=== PATIENT | female | born 1970 | race American Indian/Alaskan Native ===

== ENCOUNTER 2017-04-27 17:36 | Emergency (ER) | payer BC ==
[2017-04-27 17:39] VITALS: BMI 27.8
[2017-04-27 17:42] VITALS: BP 144/90; PULSE 94; RESP 18; TEMP 98.8; O2SAT 97
--- NOTE | 2017-04-27 17:54 | ED PDOC ---
Arrival/HPI - General Chief Complaint: Female Genitourinary Time Seen by Provider: 04/27/17 17:43 Historian: Patient - History of Present Illness Narrative History of Present Illness (Text): 04/27/17 17:52 46yo female with PMHx of DM present with complaint of urinary frequency, dysuria and hematuria since this morning. notes history of similar symptoms with UTI in the past. Denies abdominal pain, back pain, fever, chills, nausea, vomiting, any other complaint. Past Medical History - Provider Review Nursing Documentation Reviewed: Yes - Infectious Disease Hx of Infectious Diseases: None - Tetanus Immunization Tetanus Immunization: Unknown - Past Medical History Past Medical History: No Previous - Endocrine/Metabolic Hx Diabetes Mellitus Type 2: Yes - Psychiatric Hx Substance Use: No - Surgical History Hx Orthopedic Surgery: Yes (R knee surgery) Hx Tubal Ligation: Yes - Anesthesia Hx Anesthesia: Yes Hx Anesthesia Reactions: No - Suicidal Assessment Feels Threatened In Home Enviroment: No Family/Social History - Physician Review Nursing Documentation Reviewed: Yes Family/Social History: Unknown Family HX Smoking Status: Never Smoked Hx Alcohol Use: Yes Hx Substance Use: No Hx Substance Use Treatment: No Allergies/Home Meds Allergies/Adverse Reactions: Allergies No Known Allergies Allergy (Verified 11/11/15 10:37) Home Medications: Home Meds Medication Instructions Recorded Confirmed SITagliptin [Januvia] 1 tab PO DAILY 04/27/17 04/27/17 Review of Systems - Physician Review All systems were reviewed & negative as marked: Yes - Review of Systems Constitutional: Normal Eyes: Normal ENT: Normal Respiratory: Normal Cardiovascular: Normal Gastrointestinal: Normal Genitourinary Female: Dysuria, Frequency, Hematuria Musculoskeletal: Normal Skin: Normal Neurological: Normal Endocrine: Normal Hemo/Lymphatic: Normal Psychiatric: Normal Physical Exam Vital Signs Reviewed: Yes Vital Signs Temp Pulse Resp BP Pulse Ox 04/27/17 17:42 98.8 F 94 H 18 144/90 97 Temperature: Afebrile Blood Pressure: Normal Pulse: Regular Respiratory Rate: Normal Appearance: Positive for: Well-Appearing, Non-Toxic, Comfortable Pain Distress: None Mental Status: Positive for: Alert and Oriented X 3 - Systems Exam Head: Present: Atraumatic, Normocephalic Pupils: Present: PERRL Extroacular Muscles: Present: EOMI Conjunctiva: Present: Normal Mouth: Present: Moist Mucous Membranes Neck: Present: Normal Range of Motion Respiratory/Chest: Present: Clear to Auscultation, Good Air Exchange. No: Respiratory Distress, Accessory Muscle Use Cardiovascular: Present: Regular Rate and Rhythm, Normal S1, S2. No: Murmurs Abdomen: Present: Normal Bowel Sounds. No: Tenderness, Distention, Peritoneal Signs, Guarding, McBurney's Point Tender, Rovsing's Sign Present Back: Present: Normal Inspection. No: CVA Tenderness Upper Extremity: Present: Normal Inspection. No: Cyanosis, Edema Lower Extremity: Present: Normal Inspection. No: Edema Neurological: Present: GCS=15, CN II-XII Intact, Speech Normal Skin: Present: Warm, Dry, Normal Color. No: Rashes Psychiatric: Present: Alert, Oriented x 3, Normal Insight, Normal Concentration Medical Decision Making ED Course and Treatment: 04/27/17 19:15 PT is afebrile, hemodynamically stable and comfortable in ED. She have UTI and was treated with Keflex and pyridium. Advised to drink plenty of fluid. referred to her PMD. Advised TRT ED for any new or worsening symptoms. - Lab Interpretations Lab Results: Lab Results 04/27/17 17:55: Urine Color Yellow, Urine Appearance Cloudy, Urine pH 6.0, Ur Specific [place] >= 1.030, Urine Protein >=300 H, Urine Glucose (UA) Negative, Urine Ketones Trace H, Urine Blood Large H, Urine Nitrate Positive H, Urine Bilirubin Negative, Urine Urobilinogen 1.0 H, Ur Leukocyte Esterase Trace H, Urine RBC Tntc, Urine WBC Tntc, Ur Epithelial Cells 1 - 3, Urine Bacteria Mod - Medication Orders Current Medication Orders: Discontinued Medications Cephalexin Monohydrate (Keflex) 500 mg PO STAT STA PRN Reason: Protocol Stop: 04/27/17 18:54 Phenazopyridine HCl (Pyridium) 200 mg PO STAT STA Stop: 04/27/17 18:54 Disposition/Present on Arrival - Present on Arrival Any Indicators Present on Arrival: No History of DVT/PE: No History of Uncontrolled Diabetes: No Urinary Catheter: No History of Decub. Ulcer: No History Surgical Site Infection Following: None - Disposition Have Diagnosis and Disposition been Completed?: Yes Diagnosis: UTI (urinary tract infection) Disposition: HOME/ ROUTINE Disposition Time: 18:55 Patient Plan: Discharge Patient Problems: Current Active Problems Problem Status Onset UTI (urinary tract infection) Acute Condition: STABLE Discharge Instructions (ExitCare): Urinary Tract Infection in Women (ED) Additional Instructions: Drink plenty of fluid and take cranberry supplement Follow up with your doctor Return to ED for any new or worsening symptoms Prescriptions: Cephalexin [Keflex] 500 mg PO QID #28 capsule Phenazopyridine HCl [Pyridium] 200 mg PO TID #6 tablet Referrals: Emeka Riggs MD [Primary Care Provider] - Follow up with primary
[2017-04-27 18:48] LABS: URINE BILIRUBIN NEGATIVE (NEGATIVE); URINE BLOOD LARGE (NEGATIVE); URINE GLUCOSE (UA) NEGATIVE (NEGATIVE); URINE LEUKOCYTE ESTERASE TRACE Leu/uL (NEGATIVE); URINE NITRATE POSITIVE (NEGATIVE); URINE PROTEIN >=300 mg/dL (<30 mg/dL)
[2017-04-27 18:51] LABS: URINE APPEARANCE CLOUDY (CLEAR); URINE COLOR YELLOW (YELLOW)
[2017-04-27 18:54] LABS: URINE BACTERIA MOD (NEG); URINE RBC TNTC /hpf (0-2); URINE WBC TNTC /hpf (0-6)
== END 2017-04-27 19:15 | disposition home or self-care (01) ==
LOC: ED 17:36
DX: N39.0 Urinary tract infection, site not specified (principal)

== ENCOUNTER 2017-06-03 09:03 | Emergency (ER) | payer BC ==
[2017-06-03 09:03] VITALS: BMI 27.8
[2017-06-03] MEDS ORDERED: Tmp-Smz 800 mg-160 mg DS Tab PO STA (09:55)
--- NOTE | 2017-06-03 09:55 | ED PDOC ---
Arrival/HPI - General Chief Complaint: Abnormal Skin Integrity Time Seen by Provider: 06/03/17 09:21 Historian: Patient - History of Present Illness Narrative History of Present Illness (Text): 06/03/17 09:30 This 46 yo female presents to this ED c/o left buttock abscess x 3 days. Patient stated abscess started a a small pimple. Patient stated abscess is painful. Denies rectal pain, fever, sick contact or recent travel. Time/Duration: Other (3 days) Quality: Aching Context: Home Past Medical History - Provider Review Nursing Documentation Reviewed: Yes - Infectious Disease Hx of Infectious Diseases: None - Tetanus Immunization Tetanus Immunization: Unknown - Reproductive Menopause: No - Past Medical History Past Medical History: No Previous - Endocrine/Metabolic Hx Diabetes Mellitus Type 2: Yes - Psychiatric Hx Substance Use: No - Surgical History Hx Orthopedic Surgery: Yes (R knee surgery) Hx Tubal Ligation: Yes - Anesthesia Hx Anesthesia: Yes Hx Anesthesia Reactions: No - Suicidal Assessment Feels Threatened In Home Enviroment: No Family/Social History - Physician Review Nursing Documentation Reviewed: Yes Family/Social History: No Known Family HX Smoking Status: Never Smoked Hx Alcohol Use: Yes Hx Substance Use: No Hx Substance Use Treatment: No Allergies/Home Meds Allergies/Adverse Reactions: Allergies No Known Allergies Allergy (Verified 11/11/15 10:37) Review of Systems - Review of Systems Constitutional: Normal. absent: Fatigue, Weight Change, Fevers Eyes: Normal ENT: Normal Respiratory: Normal Cardiovascular: Normal Gastrointestinal: Normal Genitourinary Female: Normal Musculoskeletal: Normal Skin: Abscess Neurological: Normal Endocrine: Normal Hemo/Lymphatic: Normal Psychiatric: Normal Physical Exam Vital Signs Temp Pulse Resp BP Pulse Ox 06/03/17 09:20 99 F 82 16 116/77 98 Temperature: Afebrile Blood Pressure: Normal Pulse: Regular Respiratory Rate: Normal Appearance: Positive for: Well-Appearing, Non-Toxic, Comfortable Pain Distress: None Mental Status: Positive for: Alert and Oriented X 3 - Systems Exam Head: Present: Atraumatic, Normocephalic Pupils: Present: PERRL Extroacular Muscles: Present: EOMI Conjunctiva: Present: Normal Mouth: Present: Moist Mucous Membranes Neck: Present: Normal Range of Motion Abdomen: Present: Normal Bowel Sounds. No: Tenderness, Distention, Peritoneal Signs Back: Present: Normal Inspection Upper Extremity: Present: Normal Inspection, Normal ROM. No: Cyanosis, Edema Lower Extremity: Present: Normal Inspection, Normal ROM. No: Edema Neurological: Present: GCS=15, CN II-XII Intact, Speech Normal, Motor Func Grossly Intact, Normal Sensory Function, Normal Cerebellar Funct, Gait Normal, Memory Normal Skin: Present: Warm, Dry, Normal Color, Abscess ((+) 3 cm indurated abscess, left mid buttock. No drainage, with subtle fuctuance). No: Rashes Psychiatric: Present: Alert, Oriented x 3, Normal Insight, Normal Concentration Medical Decision Making ED Course and Treatment: 06/03/17 10:00 Re-evaluation. Patient feels better. Discussed results and plan with patient who expresses understanding. All questions answered and there is agreement with the plan to discharge home with instructions. Patient stable for discharge. Return if symptoms persist or worsen. Patient was recommended to return to emergency in 2 days for packing removal , and wound check Re-evaluation Time: 10:01 Reassessment Condition: Re-examined, Improved - Procedure PROCEDURE NOTE (Text): 06/03/17 09:57 PROCEDURE: INCISION & DRAINAGE Performed by the emergency provider Indication: Abscess Location: left buttock Preparation: The area was prepped and draped in the usual sterile fashion and was cleansed with Betadine. Local infiltration of Lidocaine 1% with Epi was used for anesthesia. Approx. 1 cc Procedure: The most fluctuant portion of the abscess was incised with a #11 scalpel. Approximately 0.5 mL of purulent material was obtained. The abscess was packed. A dressing was applied by the RN. ~ Post-Procedure: On exam the abscess is notably less fluctuant. The patient tolerated the procedure well, and there were no complications Disposition/Present on Arrival - Present on Arrival Any Indicators Present on Arrival: No History of DVT/PE: No History of Uncontrolled Diabetes: No Urinary Catheter: No History of Decub. Ulcer: No History Surgical Site Infection Following: None - Disposition Have Diagnosis and Disposition been Completed?: Yes Diagnosis: Abscess Disposition: HOME/ ROUTINE Disposition Time: 10:02 Patient Plan: Discharge Patient Problems: Current Active Problems Problem Status Onset Abscess Acute Condition: GOOD Discharge Instructions (ExitCare): Abscess (ED), Abscess Incision and Drainage (ED) Additional Instructions: Return to emergency in 2 days for wound check. keep wound clean and dry. Do sponge bath. Return to emergency sooner if wound becomes painful, or gets bigger. Prescriptions: Sulfamethoxazole/Trimethoprim [Bactrim DS 800 mg-160 mg] 1 tab PO BID #15 tab Referrals: Chato Riggs MD [Family Provider] - Follow up with primary Forms: [employer] ([place]), WORK NOTE
[2017-06-03 10:01] VITALS: BP 120/86; PULSE 86; RESP 18; TEMP 98.3; O2SAT 100
== END 2017-06-03 10:29 | disposition home or self-care (01) ==
LOC: ED 09:03
DX: L02.31 Cutaneous abscess of buttock (principal)

== ENCOUNTER 2017-06-05 09:06 | Emergency (ER) | payer BC ==
--- NOTE | 2017-06-05 09:21 | ED PDOC ---
Arrival/HPI - General Time Seen by Provider: 06/05/17 09:17 Historian: Patient - History of Present Illness Narrative History of Present Illness (Text): 06/05/17 09:20 46 y/o female, no significant pmh, nkda, s/p I&D abscess about 2 days ago, here for the packing and dressing change x 2 days. Pt. is on the bactrim ds only, pain has decreased, no fever or chills, told come back to the ER today for wound check, no night sweat, no other medical or psychological complaints. Past Medical History - Provider Review Nursing Documentation Reviewed: Yes - Infectious Disease Hx of Infectious Diseases: None - Tetanus Immunization Tetanus Immunization: Unknown - Past Medical History Past Medical History: No Previous - Endocrine/Metabolic Hx Diabetes Mellitus Type 2: Yes - Psychiatric Hx Substance Use: No - Surgical History Hx Orthopedic Surgery: Yes (R knee surgery) Hx Tubal Ligation: Yes - Anesthesia Hx Anesthesia: Yes Hx Anesthesia Reactions: No - Suicidal Assessment Feels Threatened In Home Enviroment: No Family/Social History - Physician Review Nursing Documentation Reviewed: Yes Family/Social History: Unknown Family HX Smoking Status: Never Smoked Hx Alcohol Use: Yes Hx Substance Use: No Hx Substance Use Treatment: No Allergies/Home Meds Allergies/Adverse Reactions: Allergies No Known Allergies Allergy (Verified 11/11/15 10:37) Review of Systems - Review of Systems Constitutional: absent: Fatigue, Fevers Eyes: absent: Vision Changes ENT: absent: Hearing Changes Respiratory: absent: SOB Cardiovascular: absent: Chest Pain Skin: Abscess (drained). absent: Rash, Pruritis, Skin Lesions, Laceration, Ulcer, Cellulitis Physical Exam Vital Signs Reviewed: Yes Vital Signs Pulse Resp BP Pulse Ox 06/05/17 09:26 83 16 116/85 100 Blood Pressure: Normal Pulse: Regular Respiratory Rate: Normal Appearance: Positive for: Well-Appearing, Non-Toxic, Comfortable Pain Distress: Mild Mental Status: Positive for: Alert and Oriented X 3 - Systems Exam Head: Present: Atraumatic, Normocephalic Pupils: Present: PERRL Extroacular Muscles: Present: EOMI Conjunctiva: Present: Normal Neck: Present: Normal Range of Motion Respiratory/Chest: Present: Clear to Auscultation, Good Air Exchange. No: Respiratory Distress, Accessory Muscle Use Cardiovascular: Present: Regular Rate and Rhythm, Normal S1, S2. No: Murmurs Abdomen: Present: Normal Bowel Sounds. No: Tenderness, Distention, Peritoneal Signs Upper Extremity: Present: Normal Inspection. No: Cyanosis, Edema Lower Extremity: Present: Normal Inspection. No: Edema Neurological: Present: GCS=15, Speech Normal, Motor Func Grossly Intact, Gait Normal, Memory Normal Skin: Present: Warm, Dry, Rashes (lt. gluteal regiong visible I&D wound less than 0.2cm incision wound with the packing noted approx. 3 inches which I removed, no regional streaking but there is mild redness, no regional lymphenpathy. ), Normal Color Psychiatric: Present: Alert, Oriented x 3, Normal Insight Medical Decision Making ED Course and Treatment: 06/05/17 09:50 -old packing removed, irrigated with saline, clean with betadine, new approx. 2.5 inches of 1/4" iodofoam packing inserted, will add keflex to the bactrim ds. -Urine hcg negative -gauze dressing -Discharge home with keflex, continue bactrim ds, packing and dressing needs to be changed and checked again 2 days either with your own pmd/general surgery or the ER, return to the ER for any new or worsening signs or symptoms. - PA / INSTRUCTIONAL SUPPORT TECHNICIAN / Resident Statement / has reviewed & agrees with the documentation as recorded. Disposition/Present on Arrival - Present on Arrival Any Indicators Present on Arrival: No History of DVT/PE: No History of Uncontrolled Diabetes: No Urinary Catheter: No History of Decub. Ulcer: No History Surgical Site Infection Following: None - Disposition Have Diagnosis and Disposition been Completed?: Yes Diagnosis: Change or removal of wound packing Disposition: HOME/ ROUTINE Disposition Time: 09:52 Patient Plan: Discharge Condition: GOOD Additional Instructions: -Discharge home with keflex, continue bactrim ds, packing and dressing needs to be changed and checked again 2 days either with your own pmd/general surgery or the ER, return to the ER for any new or worsening signs or symptoms. Prescriptions: Cephalexin [Keflex] 500 mg PO TID #21 capsule Referrals: Chato Riggs MD [Primary Care Provider] - Follow up with primary Richi Mendoza MD [Medical Doctor] - Follow up with primary Forms: WORK NOTE
[2017-06-05 09:29] VITALS: BMI 28.1
[2017-06-05 10:07] VITALS: TEMP 98.1
[2017-06-05 10:09] VITALS: BP 120/71; PULSE 85; RESP 18; O2SAT 99
== END 2017-06-05 10:13 | disposition home or self-care (01) ==
LOC: ED 09:06
DX: Z48.01 Encounter for change or removal of surgical wound dressing (principal)

== ENCOUNTER 2017-06-07 11:24 | Emergency (ER) | payer BC ==
[2017-06-07 11:31] VITALS: BMI 27.4
[2017-06-07 11:32] VITALS: BP 107/73; PULSE 80; TEMP 97.9
--- NOTE | 2017-06-07 12:23 | ED PDOC ---
Arrival/HPI - General Chief Complaint: Wound Check Time Seen by Provider: 06/07/17 11:44 Historian: Patient - History of Present Illness Narrative History of Present Illness (Text): 06/07/17 12:26 46-year-old female presents today for wound check of an abscess to the left buttocks. Patient states pain and swelling for the past week. Patient states she is feeling much better today. States she is taking both antibiotics as prescribed. She denies fevers or chills. Denies abdominal pain. Denies any other complaints. pt states she changed dressing today. Time/Duration: 1 week Symptom Course: Improving Past Medical History - Provider Review Nursing Documentation Reviewed: Yes - Travel History Have you recently traveled outside [place] w/in the past 3 mons?: No - Infectious Disease Hx of Infectious Diseases: None - Tetanus Immunization Tetanus Immunization: Unknown - Past Medical History Past Medical History: No Previous - Endocrine/Metabolic Hx Diabetes Mellitus Type 2: Yes (prediabetic) - Psychiatric Hx Substance Use: No - Surgical History Hx Orthopedic Surgery: Yes (R knee surgery) Hx Tubal Ligation: Yes - Anesthesia Hx Anesthesia: Yes Hx Anesthesia Reactions: No - Suicidal Assessment Feels Threatened In Home Enviroment: No Family/Social History - Physician Review Nursing Documentation Reviewed: Yes Family/Social History: Unknown Family HX Smoking Status: Never Smoked Hx Alcohol Use: Yes Hx Substance Use: No Hx Substance Use Treatment: No Allergies/Home Meds Allergies/Adverse Reactions: Allergies No Known Allergies Allergy (Verified 06/07/17 11:28) Review of Systems - Review of Systems Constitutional: absent: Fatigue, Fevers Respiratory: absent: SOB, Cough Gastrointestinal: absent: Abdominal Pain, Nausea, Vomiting Genitourinary Female: absent: Dysuria Musculoskeletal: absent: Arthralgias Skin: Abscess Neurological: absent: Headache, Dizziness Physical Exam Vital Signs Reviewed: Yes Vital Signs Temp Pulse Resp BP Pulse Ox 06/07/17 11:31 97.9 F 80 18 107/73 100 Temperature: Afebrile Blood Pressure: Normal Pulse: Regular Respiratory Rate: Normal Appearance: Positive for: Well-Appearing, Non-Toxic, Comfortable Pain Distress: None Mental Status: Positive for: Alert and Oriented X 3 - Systems Exam Head: Present: Atraumatic Neck: Present: Normal Range of Motion Respiratory/Chest: Present: Clear to Auscultation Cardiovascular: Present: Regular Rate and Rhythm Back: Present: Normal Inspection Upper Extremity: Present: Normal ROM Lower Extremity: Present: Normal ROM Neurological: Present: GCS=15 Skin: Present: Warm, Dry, Abscess (left buttock; there is a 3cm round indurated circular area without erythema with central opening without packing in place.) Psychiatric: Present: Alert, Oriented x 3 Medical Decision Making ED Course and Treatment: 06/07/17 12:33 Patient is nontoxic well-appearing in no distress. Vital signs are stable. Patient with one-week history of abscess removed the dressing today and removed packing. Presents for reevaluation. 3 cm round circular area of induration without erythema. Minimally tender. No purulent discharge from the central wound. Advised continuing antibiotics as prescribed. Advised warm soaks and warm compresses. Advised follow-up with the surgeon. return immediately if symptoms worsen persist or if new symptoms develop Impression: Abscess, buttock Continue antibiotics as prescribed Warm compresses and warm soaks frequently Follow up with the surgeon within the next 2 days Follow up with the primary care physician within the next 2 days. Return immediately if symptoms worsen persist or if new symptoms develop: High fevers, increasing pain, increasing redness, swelling or if any other concerning symptoms develop Disposition/Present on Arrival - Present on Arrival Any Indicators Present on Arrival: No History of DVT/PE: No History of Uncontrolled Diabetes: No Urinary Catheter: No History of Decub. Ulcer: No History Surgical Site Infection Following: None - Disposition Have Diagnosis and Disposition been Completed?: Yes Diagnosis: Visit for wound check Disposition: HOME/ ROUTINE Disposition Time: 12:00 Patient Plan: Discharge Condition: GOOD Discharge Instructions (ExitCare): Abscess (ED) Additional Instructions: Continue antibiotics as prescribed Warm compresses and warm soaks frequently Follow up with the surgeon within the next 2 days Follow up with the primary care physician within the next 2 days. Return immediately if symptoms worsen persist or if new symptoms develop: High fevers, increasing pain, increasing redness, swelling or if any other concerning symptoms develop. Referrals: Remberto Aquino MD [Staff Provider] - Follow up with primary Terell Mcdonald MD [Staff Provider] - Follow up with primary Richi Mendoza MD [Medical Doctor] - Follow up with primary Forms: [employer] ([place])
[2017-06-07 12:31] VITALS: RESP 16; O2SAT 98
== END 2017-06-07 12:32 | disposition home or self-care (01) ==
LOC: ED 11:24
DX: Z51.89 Encounter for other specified aftercare (principal)

== ENCOUNTER 2018-03-31 18:07 | Emergency (ER) | payer BC ==
[2018-03-31 18:24] VITALS: TEMP 97.7; BMI 27.8
--- NOTE | 2018-03-31 19:08 | ED PDOC ---
Arrival/HPI - General Chief Complaint: Back Pain Time Seen by Provider: 03/31/18 18:52 - History of Present Illness Narrative History of Present Illness (Text): 03/31/18 19:03 47 yo F with no PMH presents to emergency department due to back pain. Patient states that about 1 week ago she had to mop a large room at her job and her back hurt every since then. Patient states that pain is localized the left side of her thoracic back. Patient denies radiation and numbness. Patient states that pain increases with movement, specifically left sidebending. Patient states that heating pads and ibuprofen has not helped. Patient states that she had similar pain the past that has improved with muscle relaxers. Patient denies chest pain, shortness of breath, nausea, vomiting, abdominal pain, fever , chills, headache, or loss in strength. PMD: [place] Past Medical History - Infectious Disease Hx of Infectious Diseases: None - Tetanus Immunization Tetanus Immunization: Unknown - Reproductive Menopause: No - Past Medical History Past Medical History: No Previous - Endocrine/Metabolic Hx Diabetes Mellitus Type 2: Yes (prediabetic) - Psychiatric Hx Substance Use: No - Surgical History Hx Orthopedic Surgery: Yes (R knee surgery) Hx Tubal Ligation: Yes - Anesthesia Hx Anesthesia: Yes Hx Anesthesia Reactions: No - Suicidal Assessment Feels Threatened In Home Enviroment: No Family/Social History Family/Social History: No Known Family HX Smoking Status: Never Smoked Hx Alcohol Use: Yes Hx Substance Use: No Hx Substance Use Treatment: No Allergies/Home Meds Allergies/Adverse Reactions: Allergies No Known Allergies Allergy (Verified 06/07/17 11:28) Review of Systems - Physician Review All systems were reviewed & negative as marked: Yes (12 point ROS reviewed and is negative other than what is stated in HPI.) Physical Exam Vital Signs Reviewed: Yes Vital Signs Temp Pulse Resp BP Pulse Ox 03/31/18 18:19 97.7 F 87 18 125/82 99 Temperature: Afebrile Blood Pressure: Normal Pulse: Regular Respiratory Rate: Normal Appearance: Positive for: Non-Toxic Pain Distress: Mild Mental Status: Positive for: Alert and Oriented X 3 - Systems Exam Head: Present: Atraumatic, Normocephalic Pupils: Present: PERRL Extroacular Muscles: Present: EOMI Conjunctiva: Present: Normal Mouth: Present: Moist Mucous Membranes Neck: Present: Normal Range of Motion Respiratory/Chest: Present: Clear to Auscultation. No: Wheezes, Rales, Rhonchi Cardiovascular: Present: Regular Rate and Rhythm, Murmurs. No: Normal S1, S2, Rub, Gallop Abdomen: No: Tenderness, Distention, Rebound, Guarding Back: Present: Paraspinal Tenderness (left thoracic, spasm) Upper Extremity: Present: Normal Inspection. No: Cyanosis, Edema Lower Extremity: Present: Normal Inspection. No: Edema Neurological: Present: GCS=15, CN II-XII Intact, Speech Normal Skin: Present: Warm, Dry, Normal Color. No: Rashes Psychiatric: Present: Alert, Oriented x 3, Normal Insight, Normal Concentration Medical Decision Making ED Course and Treatment: 03/31/18 19:09 47 yo F presents to Emergency department with left sided thoracic pain. Plan: - Toradol - Tylenol - Rx for flexeril. Patient was advised against operating heavy machinery while taking flexeril. Patient was advised to follow up with her PMD. Patient will be discharged. - Medication Orders Current Medication Orders: Ketorolac Tromethamine (Toradol) 15 mg IVP STAT STA Stop: 03/31/18 19:02 Discontinued Medications Acetaminophen (Tylenol 325mg Tab) 975 mg PO STAT STA Stop: 03/31/18 18:53 Disposition/Present on Arrival - Present on Arrival Any Indicators Present on Arrival: No History of DVT/PE: No History of Uncontrolled Diabetes: No Urinary Catheter: No History of Decub. Ulcer: No History Surgical Site Infection Following: None - Disposition Have Diagnosis and Disposition been Completed?: Yes Diagnosis: Thoracic myofascial strain Disposition: HOME/ ROUTINE Disposition Time: 19:11 Patient Plan: Discharge Patient Problems: Current Active Problems Problem Status Onset Thoracic myofascial strain Acute Condition: STABLE Discharge Instructions (ExitCare): Muscle Strain (DC) Additional Instructions: 1. Follow up with PMD within 1 week 2. Take flexeril as need for muscle spasm. Do not operate heavy machinery while on medications. 3. Return to Emergency department if symptoms worsen. BRANDON SAVAGE, thank you for letting us take care of you today. Your provider was Zac Arndt MD and you were treated for BACK PAIN. The emergency medical care you received today was directed at your acute symptoms. If you were prescribed any medication, please fill it and take as directed. It may take several days for your symptoms to resolve. Return to the Emergency Department if your symptoms worsen, do not improve, or if you have any other problems. Please contact your doctor or call one of the physicians/clinics you have been referred to that are listed on the Patient Visit Information form that is included in your discharge packet. Bring any paperwork you were given at discharge with you along with any medications you are taking to your follow up visit. Our treatment cannot replace ongoing medical care by a primary care provider outside of the emergency department. Thank you for allowing the [facility] team to be part of your care today. Prescriptions: Cyclobenzaprine [Flexeril] 5 mg PO Q8H PRN #10 tab PRN Reason: Muscle Spasm Referrals: Mikal Pinto, [Primary Care Provider] - Follow up with primary Forms: [employer] (Uruguayan)
[2018-03-31 19:43] VITALS: BP 121/79; PULSE 85; RESP 16; O2SAT 100
== END 2018-03-31 19:42 | disposition home or self-care (01) ==
LOC: ED 18:07
DX: S29.012A Strain of muscle and tendon of back wall of thorax, initial encounter (principal); Y93.E5 Activity, floor mopping and cleaning; Y99.0 Civilian activity done for income or pay
CPT/HCPCS: 96374; 99283; J1885

== ENCOUNTER 2018-12-20 10:08 | Outpatient (CLI) | payer BC | END 2018-12-20 10:09 | disposition home or self-care (01) | LOC: RAD 10:08 ==

== ENCOUNTER 2019-01-11 16:45 | Emergency (ER) | payer BC ==
[2019-01-11 16:45] VITALS: BMI 27.8
[2019-01-11 17:02] VITALS: RESP 18; TEMP 98.7; O2SAT 100
--- NOTE | 2019-01-11 18:21 | US ---
PROCEDURE: Right lower extremity venous US HISTORY: Leg pain and swelling. Evaluate for DVT. PHYSICIAN(S): Elijah Garcia M.D. TECHNIQUE: Duplex sonography and color-flow Doppler with graded compression were used to evaluate the deep venous system of the right lower extremity. FINDINGS: The visualized deep venous system of the right lower extremity is sonographically normal and compressible. Normal waveforms and augmentation are seen. There is no sonographic evidence for deep venous thrombosis in the visualized segments of the right lower extremity. IMPRESSION: 1. No sonographic evidence for deep venous thrombosis in the visualized segments of the right lower extremity.
[2019-01-11 18:25] VITALS: BP 130/77; PULSE 88
--- NOTE | 2019-01-11 18:26 | ED PDOC ---
Arrival/HPI - General Chief Complaint: Lower Extremity Problem/Injury Time Seen by Provider: 01/11/19 17:05 Historian: Patient - History of Present Illness Narrative History of Present Illness (Text): 01/12/19 04:20 48 y/o female with no significant past medical history of presents to the emergency department complaining of right calf pain x one day. Pain is cramping worse with walking. Patient states that she has been on her feet more at work. Denies recent surgery, travel, history of cancer, or hormone use. Has not taken any medication for pain. No trauma, calf swelling, shortness of breath, numbness, weakness, paresthesia, or any other associated symptoms. Past Medical History - Provider Review Nursing Documentation Reviewed: Yes - Infectious Disease Hx of Infectious Diseases: None - Tetanus Immunization Tetanus Immunization: Unknown - Past Medical History Past Medical History: No Previous - Endocrine/Metabolic Hx Diabetes Mellitus Type 2: Yes (prediabetic) - Psychiatric Hx Substance Use: No - Surgical History Hx Orthopedic Surgery: Yes (R knee surgery) Hx Tubal Ligation: Yes - Anesthesia Hx Anesthesia: Yes Hx Anesthesia Reactions: No - Suicidal Assessment Feels Threatened In Home Enviroment: No Family/Social History - Physician Review Nursing Documentation Reviewed: Yes Family/Social History: No Known Family HX Smoking Status: Never Smoked Hx Alcohol Use: Yes Hx Substance Use: No Hx Substance Use Treatment: No Allergies/Home Meds Allergies/Adverse Reactions: Allergies No Known Allergies Allergy (Verified 01/11/19 16:58) Review of Systems - Review of Systems Constitutional: Normal. absent: Fevers Eyes: Normal. absent: Vision Changes, Photophobia Respiratory: Normal. absent: SOB, Cough Cardiovascular: Normal. absent: Chest Pain, Palpitations Gastrointestinal: Normal. absent: Abdominal Pain, Nausea, Vomiting Musculoskeletal: Myalgias Skin: Normal. absent: Rash, Cellulitis Neurological: Normal. absent: Headache, Dizziness Psychiatric: Normal Physical Exam Vital Signs Reviewed: Yes Vital Signs Temp Pulse Resp BP Pulse Ox 01/11/19 16:59 98.7 F 91 H 18 136/85 100 Temperature: Afebrile Blood Pressure: Normal Pulse: Regular Respiratory Rate: Normal Appearance: Positive for: Well-Appearing, Non-Toxic, Comfortable Pain Distress: None Mental Status: Positive for: Alert and Oriented X 3 - Systems Exam Head: Present: Atraumatic, Normocephalic Pupils: Present: PERRL Extroacular Muscles: Present: EOMI Conjunctiva: Present: Normal Mouth: Present: Moist Mucous Membranes Neck: Present: Normal Range of Motion. No: Meningeal Signs, MIDLINE TENDERNESS Respiratory/Chest: Present: Clear to Auscultation, Good Air Exchange. No: Respiratory Distress, Accessory Muscle Use Cardiovascular: Present: Regular Rate and Rhythm, Normal S1, S2 Back: Present: Normal Inspection. No: CVA Tenderness, Paraspinal Tenderness Upper Extremity: Present: Normal Inspection, Normal ROM, NORMAL PULSES, Neurovascularly Intact, Capillary Refill < 2s. No: Cyanosis, Edema, Temperature Abnormalties Lower Extremity: Present: Normal Inspection, CALF TENDERNESS (right), NORMAL PULSES, Normal ROM, Neurovascularly Intact, Capillary Refill < 2 s. No: Edema, Swelling, Temperature Abnormalties Neurological: Present: GCS=15, CN II-XII Intact, Speech Normal, Motor Func Grossly Intact, Normal Sensory Function, Gait Normal Skin: Present: Warm, Dry, Normal Color. No: Rashes Psychiatric: Present: Alert, Oriented x 3, Normal Insight, Normal Concentration, Normal Affect, Normal Mood Medical Decision Making ED Course and Treatment: Initial Plan: * Right venous duplex * Toradol * Flexeril 1815 Prelim read DVT negative Pt reports improvement in symptoms with medications Diagnostic testing results and plan of care discussed with patient. Strict instructions given regarding prescription use, importance of followup, and signs/symptoms to return to ER including worsening pain, calf swelling, or any other new/worsening symptoms. Pt verbalized understanding of discussion. Patient is A&Ox3, ambluating with steady gait, with vital signs stable for discharge. - RAD Interpretation Radiology Orders: 01/11/19 17:19 DUPLEX LOWER EXTRM VEIN RIGHT [US] Stat - Medication Orders Current Medication Orders: Discontinued Medications Cyclobenzaprine HCl (Flexeril) 5 mg PO STAT STA Stop: 01/11/19 17:21 Last Admin: 01/11/19 17:43 Dose: Not Given Non-Admin Reason: Patient Refused Ketorolac Tromethamine (Toradol) 30 mg IM STAT STA Stop: 01/11/19 17:20 Last Admin: 01/11/19 17:43 Dose: Not Given Non-Admin Reason: Patient Refused Disposition/Present on Arrival - Present on Arrival Any Indicators Present on Arrival: No History of DVT/PE: No History of Uncontrolled Diabetes: No Urinary Catheter: No History of Decub. Ulcer: No History Surgical Site Infection Following: None - Disposition Have Diagnosis and Disposition been Completed?: Yes Diagnosis: Muscle strain Disposition: HOME/ ROUTINE Disposition Time: 18:25 Patient Plan: Discharge Condition: IMPROVED Discharge Instructions (ExitCare): Muscle Strain (DC) Additional Instructions: Rest, no strenuous activity Ibuprofen every 8 hours with foot as needed for pain Flexeril every night before bed, do not take before driving or working Rest, no strenuous activity Followup with primary doctor within 2 days Followup with orthopedics for persistent pain Return to ER with any new/worsening symptoms Prescriptions: Cyclobenzaprine [Cyclobenzaprine HCl] 10 mg PO HS PRN #7 tab PRN Reason: Muscle Spasm Ibuprofen [Motrin Tab] 600 mg PO Q8 #30 tab Referrals: Cruz Umaña III, MD [Medical Doctor] - Follow up with primary Lakesha Riggs MD [Non-Staff] - Follow up with primary Forms: [employer] (Ukrainian), WORK NOTE
== END 2019-01-11 18:35 | disposition home or self-care (01) ==
LOC: ED 16:45
DX: S86.911A Strain of unspecified muscle(s) and tendon(s) at lower leg level, right leg, initial encounter (principal); X58.XXXA Exposure to other specified factors, initial encounter; R73.03 Prediabetes; Z98.51 Tubal ligation status

== ENCOUNTER 2019-03-13 12:48 | Emergency (ER) | payer BC ==
[2019-03-13 12:52] VITALS: BMI 28.1
--- NOTE | 2019-03-13 12:56 | ED PDOC ---
Arrival/HPI - General Historian: Patient - History of Present Illness Narrative History of Present Illness (Text): 03/13/19 12:56 48 y/o female, pmh including headache, nkda, c/o rt. sided headache started this morning. Aching pain, throbbing sensation, no numbness or tingling, no change in vision, no rash, no night sweat, no neck pain, no palpitation, no other medical or psychological complaints. Past Medical History - Provider Review Nursing Documentation Reviewed: Yes - Infectious Disease Hx of Infectious Diseases: None - Tetanus Immunization Tetanus Immunization: Unknown - Past Medical History Past Medical History: No Previous - Endocrine/Metabolic Hx Diabetes Mellitus Type 2: Yes (prediabetic) - Psychiatric Hx Substance Use: No - Surgical History Hx Orthopedic Surgery: Yes (R knee surgery) Hx Tubal Ligation: Yes - Anesthesia Hx Anesthesia: Yes Hx Anesthesia Reactions: No - Suicidal Assessment Feels Threatened In Home Enviroment: No Family/Social History - Physician Review Nursing Documentation Reviewed: Yes Family/Social History: Unknown Family HX Smoking Status: Never Smoked Hx Alcohol Use: Yes Hx Substance Use: No Hx Substance Use Treatment: No Allergies/Home Meds Allergies/Adverse Reactions: Allergies No Known Allergies Allergy (Verified 01/11/19 16:58) Review of Systems - Review of Systems Constitutional: absent: Fatigue, Fevers Eyes: absent: Vision Changes ENT: absent: Hearing Changes Respiratory: absent: SOB, Cough Cardiovascular: absent: Chest Pain Gastrointestinal: absent: Abdominal Pain, Diarrhea, Nausea, Vomiting, Anorexia Musculoskeletal: absent: Arthralgias, Back Pain Skin: absent: Rash, Pruritis Neurological: Headache Hemo/Lymphatic: absent: Adenopathy, Easy Bleeding Psychiatric: absent: Anxiety, Depression, Suicidal Ideation Physical Exam - Systems Exam Head: Present: Atraumatic, Normocephalic, Other (no temporal artery tenderness and no jaw claudication). No: Tenderness, Contusion, Swelling, Ecchymosis, Abrasion, Laceration Pupils: Present: PERRL Extroacular Muscles: Present: EOMI Conjunctiva: Present: Normal, Other (bilateral vision: 20/20 with correction, rt. vision w correction 20/20, lt. vision w correction 20/20 no periorbital swelling, no hyphema or subconjunctival hemorrhage, rt. intraocular pressure is 18. ) Mouth: Present: Moist Mucous Membranes Pharnyx: No: ERYTHEMA, EXUDATE, TONSILS ENLARGED Nose (External): Present: Atraumatic. No: Abrasion, Contusion, Laceration, Lesions Nose (Internal): Present: Normal Inspection, No Active Bleeding. No: Rhinorrhea, Septal Hematoma, Epistaxis Neck: Present: Normal Range of Motion, Trachea Midline. No: Meningeal Signs, MIDLINE TENDERNESS, Paraspinal Tenderness, Lymphadenopathy Respiratory/Chest: Present: Clear to Auscultation, Good Air Exchange. No: Respiratory Distress, Accessory Muscle Use Cardiovascular: Present: Regular Rate and Rhythm, Normal S1, S2. No: Murmurs Abdomen: Present: Normal Bowel Sounds. No: Tenderness, Distention, Peritoneal Signs, Rebound, Guarding, McBurney's Point Tender, Rovsing's Sign Present Back: Present: Normal Inspection Upper Extremity: Present: Normal Inspection, Normal ROM, NORMAL PULSES, Neurovascularly Intact, Capillary Refill < 2s. No: Cyanosis, Edema, Deformity Lower Extremity: Present: Normal Inspection, NORMAL PULSES, Normal ROM, Neurovascularly Intact, Capillary Refill < 2 s. No: Edema, Deformity Neurological: Present: GCS=15, CN II-XII Intact, Speech Normal, Motor Func Grossly Intact, Normal Cerebellar Funct, Gait Normal, Memory Normal Skin: Present: Warm, Dry, Normal Color. No: Rashes Psychiatric: Present: Alert, Oriented x 3, Normal Insight, Normal Concentration Medical Decision Making ED Course and Treatment: 03/13/19 13:06 -labs -CT head -IV benadryl/reglan -Observe and reassess 03/13/19 15:04 -Urine hcg is negative -UA show no UTI -CT head Normal CT of the Head. -Labs are non significant -Rt. eye introacular pressure within normal limit, 18 -Pt. feels well, no focal neurological deficits. -Headache resolved -Discharge home with tylenol, bed rest, follow up with your own pmd and neurologist within 2 days, return to the ER for any new or worsening signs or symptoms. - RAD Interpretation Radiology Orders: Date of service: 03/13/2019 PROCEDURE: CT HEAD WITHOUT CONTRAST. HISTORY: headache COMPARISON: None available. TECHNIQUE: Axial computed tomography images were obtained through the head/brain without intravenous contrast. Radiation dose: Total exam DLP = 723.91 mGy-cm. This CT exam was performed using one or more of the following dose reduction techniques: Automated exposure control, adjustment of the mA and/or kV according to patient size, and/or use of iterative reconstruction technique. FINDINGS: HEMORRHAGE: No intracranial hemorrhage. BRAIN: No mass effect or edema. No atrophy or chronic microvascular ischemic changes. VENTRICLES: Unremarkable. No hydrocephalus. CALVARIUM: Unremarkable. PARANASAL SINUSES: Unremarkable as visualized. No significant inflammatory changes. MASTOID AIR CELLS: Unremarkable as visualized. No inflammatory changes. OTHER FINDINGS: None. IMPRESSION: Normal CT of the Head. Radio Recorder: Radiologist - PA / SUPERVISOR [employer]CHARD / Resident Statement MD/DO has reviewed & agrees with the documentation as recorded. Disposition/Present on Arrival - Present on Arrival Any Indicators Present on Arrival: No History of DVT/PE: No History of Uncontrolled Diabetes: No Urinary Catheter: No History of Decub. Ulcer: No History Surgical Site Infection Following: None - Disposition Have Diagnosis and Disposition been Completed?: Yes Diagnosis: Headache Disposition: HOME/ ROUTINE Disposition Time: 15:05 Patient Plan: Discharge Condition: IMPROVED Additional Instructions: -Discharge home with tylenol, bed rest, follow up with your own pmd and neurologist within 2 days, return to the ER for any new or worsening signs or symptoms. Prescriptions: Acetaminophen [Tylenol] 2 cap PO QID PRN #30 capsule PRN Reason: Other Referrals: Lakesha Riggs MD [Primary Care Provider] - Follow up with primary Jazmyne Ahmadi MD [Staff Provider] - Follow up with primary [facility] [place] [Outside] - Follow up with primary Forms: WORK NOTE
[2019-03-13] MEDS ORDERED: DiphenhydrAMINE 50 mg/ml Inj IVP STA (13:11)
[2019-03-13 13:14] VITALS: RESP 18; TEMP 97.8
[2019-03-13 13:44] LABS: PH,URINE 7.5 (4.7-8.0); URINE BILIRUBIN NEGATIVE (NEGATIVE); URINE BLOOD NEGATIVE (NEGATIVE); URINE GLUCOSE (UA) NEGATIVE (NEGATIVE); URINE LEUKOCYTE ESTERASE NEGATIVE Leu/uL (NEGATIVE); URINE PROTEIN NEGATIVE mg/dL (<30 mg/dL); URINE UROBILINOGEN 0.2 E.U./dL (<1 E.U./dL)
[2019-03-13 13:45] LABS: URINE APPEARANCE SL CLOUDY (CLEAR); URINE COLOR YELLOW (YELLOW)
[2019-03-13 13:52] LABS: BASO # 0.01 K/mm3 (0.0-2.0); BASO % 0.1 % (0.0-3.0); EOS # 0.1 (0.0-0.7); EOS % 0.7 % (1.5-5.0); HEMOGLOBIN 13.5 g/dL (12.0-16.0); LYMPH # 1.8 (1.2-3.4); LYMPH % 24.4 % (22.0-35.0); MEAN CELL VOLUME 90.9 fl (80.0-105.0); MEAN CORPUSCULAR HEMOGLOBIN 29.8 pg (25.0-35.0); MEAN CORPUSCULAR HGB CONC 32.8 g/dl (31.0-37.0); MEAN PLATELET VOLUME 10.1 fl (7.0-11.0); MONO # 0.3 (0.1-0.6); MONO % 4.4 % (1.0-6.0); RBC 4.53 10^6/uL (3.5-6.1); RED CELL DISTRIBUTION WIDTH 13.1 % (11.5-14.5); WHITE BLOOD COUNT 7.5 10^3/uL (4.5-11.0)
[2019-03-13 14:01] LABS: ALB/GLOB RATIO 1.4 (1.1-1.8); ALBUMIN 4.6 g/dL (3.0-4.8); ALT/SGPT 32 U/L (7-56); AST/SGOT 23 U/L (14-36); BLOOD UREA NITROGEN 13 mg/dL (7-21); CALCIUM 9.7 mg/dL (8.4-10.5); GFR NON-AFRICAN AMERICAN 59; LIPASE 51 U/L (23-300)
--- NOTE | 2019-03-13 14:47 | CT ---
Date of service: 03/13/2019 PROCEDURE: CT HEAD WITHOUT CONTRAST. HISTORY: headache COMPARISON: None available. TECHNIQUE: Axial computed tomography images were obtained through the head/brain without intravenous contrast. Radiation dose: Total exam DLP = 723.91 mGy-cm. This CT exam was performed using one or more of the following dose reduction techniques: Automated exposure control, adjustment of the mA and/or kV according to patient size, and/or use of iterative reconstruction technique. FINDINGS: HEMORRHAGE: No intracranial hemorrhage. BRAIN: No mass effect or edema. No atrophy or chronic microvascular ischemic changes. VENTRICLES: Unremarkable. No hydrocephalus. CALVARIUM: Unremarkable. PARANASAL SINUSES: Unremarkable as visualized. No significant inflammatory changes. MASTOID AIR CELLS: Unremarkable as visualized. No inflammatory changes. OTHER FINDINGS: None. IMPRESSION: Normal CT of the Head.
[2019-03-13 15:18] VITALS: BP 128/88; PULSE 76; O2SAT 98
== END 2019-03-13 15:20 | disposition home or self-care (01) ==
LOC: ED 12:48
DX: R51 Headache (principal); R73.03 Prediabetes; Z98.51 Tubal ligation status